=== PATIENT | male | born 1980 | race Caucasian/White ===

== ENCOUNTER 2022-09-15 17:06 | Emergency (ER) | payer BC ==
[~2022-09-15] VITALS: Ht 172.7 cm; Wt 64.0 kg
[2022-09-15 17:17] VITALS: BP 163/91
[2022-09-15] MEDS ORDERED: ACET-2708 MT (19:26)
[2022-09-15] MEDS ORDERED: HYDR30CR80 TP (19:26)
== END 2022-09-15 19:40 | disposition home or self-care (01) ==
LOC: ER 17:06
DX: K64.4 Residual hemorrhoidal skin tags (principal); Z98.890 Other specified postprocedural states
CPT/HCPCS: 99282

== ENCOUNTER 2023-06-14 11:27 | Emergency (ER) | payer BC ==
[~2023-06-14] VITALS: Ht 172.7 cm; Wt 82.0 kg
[~2023-06-14 11:27] MED LIST: ACET-2708 MT; HYDR30CR80 TP
[2023-06-14 11:30] VITALS: O2SAT 100
[2023-06-14] MEDS: CYCLOBENZAPRINE 10MG TABLET PO ONE (12:53)
[2023-06-14] MEDS: KETOROLAC 15MG/ML VIAL IM ONE (12:53)
[2023-06-14] MEDS ORDERED: NAPR-681 MT (13:25)
[2023-06-14] MEDS ORDERED: CYCL10TA21 MT (13:25)
[2023-06-14 14:30] VITALS: BP 140/89; PULSE 65; RESP 17; TEMP 98.4
== END 2023-06-14 16:01 | disposition home or self-care (01) ==
LOC: ER 11:27
DX: M79.18 Myalgia, other site (principal); I10 Essential (primary) hypertension; Z98.890 Other specified postprocedural states; V98.8XXA Other specified transport accidents, initial encounter; Y93.89 Activity, other specified; Y92.89 Other specified places as the place of occurrence of the external cause; Y99.8 Other external cause status
CPT/HCPCS: 96372; 99283; J1885; Z7610